=== PATIENT | male | born 1970 | race Caucasian/White ===

== ENCOUNTER 2019-04-18 12:16 | Inpatient (IN) | payer OTHER ==
[2019-04-18 13:38] VITALS: BMI 32.1
--- NOTE | 2019-04-18 16:15 | HP ---
CIWA Score Nausea/Vomitin Muscle Tremors: 4-Moderate,w/Arms Extend Anxiety: 4-Mod. Anxious/Guarded Agitation: 4-Moderately Restless Paroxysmal Sweats: No Perspiration Orientation: 0-Oriented Tacttile Disturbances: 2-Mild Itch/Numbness/Burn Auditory Disturbances: 0-None Visual Disturbances: 0-None Headache: 5-Severe CIWA-Ar Total Score: 21 - Admission Criteria OASAS Guidelines: Admission for Medically Managed Detox: Requires at least one of the followin. CIWA greater than 12 2. Seizures within the past 24 hours 3. Delirium tremens within the past 24 hours 4. Hallucinations within the past 24 hours 5. Acute intervention needed for co occurring medical disorder 6. Acute intervention needed for co occurring psychiatric disorder 7. Severe withdrawal that cannot be handled at a lower level of care (continued vomiting, continued diarrhea, abnormal vital signs) requiring intravenous medication and/or fluids 8. Admission ROS S - HPI Allergies/Adverse Reactions: Allergies Allergy/AdvReac Type Severity Reaction Status Date / Time No Known Allergies Allergy Verified 04/18/19 13:32 History of Present Illness: pt here requesting detox from etoh use , reports he went to [facility] and was directed to call for pickup to this facility , denies being seen by medical staff @ [facility] or having had meds today . latest use of etoh last night , daily use vodka 1 bottle and 1 x 6-pk beer daily x 30 days , prior to which he was not drinking alcohol per pt " for a while " . Pt declines to answer questions about triggering event " If I told you you would wind up in an asylum, I am doing it for your benefit " . reports blackouts , tremors , seizure " years ago " from etoh w/d . Pt is poor historian, irritable, hostile. 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 Exam Limitations: Clinical Condition - Ebola screening Have you traveled outside of the country in the last 21 days: No Have you had contact with anyone from an Ebola affected area: No Do you have a fever: No - Review of Systems Constitutional: No Symptoms Reported EENT: reports: See HPI Respiratory: reports: No Symptoms reported Cardiac: reports: No Symptoms Reported GI: reports: See HPI : reports: No Symptoms Reported Musculoskeletal: reports: No Symptoms Reported Integumentary: reports: No Symptoms Reported Neuro: reports: See HPI Endocrine: reports: No Symptoms Reported Psychiatric: reports: Orientated x3, Agitated, Anxious Patient History - Smoking Cessation Smoking history: Current every day smoker Have you smoked in the past 12 months: Yes Hx Chewing Tobacco Use: No Initiated information on smoking cessation: No - Substances abused Alcohol Substance route: Oral Frequency: Daily Amount used: 1 bottle, 6 pack beer Age of first use: 16 Date of last use: 04/17/19 Cocaine Substance route: Inhalation Frequency: Daily Amount used: $100 Age of first use: 18 Date of last use: 04/17/19 Family Disease History - Family Disease History Family History: Denies Admission Physical Exam [facility] - Vital Signs Vital Signs: Vital Signs - 24 hr 04/18/19 04/18/19 13:34 14:16 Temperature 96.7 F L 96.7 F L Pulse Rate 67 67 Respiratory 18 18 Rate Blood Pressure 106/76 106/76 - Physical General Appearance: Yes: Moderate Distress, Tremorous, Irritable, Anxious HEENTM: Yes: Hearing grossly Normal, Normocephalic, Normal Voice Respiratory: Yes: Lungs Clear, Normal Breath Sounds, No Respiratory Distress, No Accessory Muscle Use Neck: Yes: No masses,lesions,Nodules, Trachea in good position Cardiology: Yes: Regular Rhythm, Regular Rate, S1, S2 Abdominal: Yes: Non Tender, Soft Musculoskeletal: Yes: Gait Steady Extremities: Yes: Normal Range of Motion, Non-Tender, Tremors Neurological: Yes: Fully Oriented, Alert, Motor Strength 5/5, Other (irritable , hostile affect) Integumentary: Yes: Warm - Diagnostic (1) Alcohol abuse Current Visit: Yes Status: Acute (2) Cocaine use disorder Current Visit: Yes Status: Acute (3) Nicotine dependence Current Visit: Yes Status: Acute Qualifiers: Nicotine product type: cigarettes Breathalyzer - Breathalyzer Breathalyzer: 0 Urine Drug Screen - Test Device Lot number: [id number] Expiration date: 01/23/20 - Control Is test valid?: Yes - Results Drug screen NEGATIVE: No Urine drug screen results: THC-Marijuana, RADHA-Cocaine, BZO-Benzodiazepines Inpatient Rehab Admission - Rehab Decision to Admit Inpatient rehab admission?: No
[2019-04-18] MEDS ORDERED: MELATONIN 5 MG TABLETS PO PRN (16:19)
[2019-04-18] MEDS ORDERED: MAGNESIUM HYDROX 2400MG/30ML ORAL SUSPENSION 30 ML CUP PO PRN (16:19)
[2019-04-18] MEDS ORDERED: hydrOXYzine HCL 25 MG TABLET (FP) PO PRN (16:19)
[2019-04-18] MEDS ORDERED: NICOTINE POLACRILEX 2 MG GUM BUC PRN (16:19)
[2019-04-18] MEDS ORDERED: MAG HYDROX/AL HYDROX/SIMETH 30 ML UNIT-DOSE CUP PO PRN (16:19)
[2019-04-18] MEDS ORDERED: MENTHOL/PHENOL 1 EACH UD MM PRN (16:19)
[2019-04-18] MEDS ORDERED: ACETAMINOPHEN 325 MG TABLET (FP) PO PRN ×2 (16:19)
[2019-04-18] MEDS ORDERED: BISMUTH SUBSALICYLATE 524 MG/30 ML UD PO PRN (16:19)
[2019-04-18] MEDS ORDERED: IBUPROFEN 400 MG TABLET (FP) PO PRN (16:19)
[2019-04-18] MEDS ORDERED: MAGNESIUM CITRATE 300 ML BOTTLE PO PRN (16:19)
[2019-04-18] MEDS ORDERED: chlordiazePOXIDE HCL 25 MG CAPSULE PO PRN (16:20)
[2019-04-18] MEDS: chlordiazePOXIDE HCL 25 MG CAPSULE PO SCH ×2 (17:26→22:50)
[2019-04-18] MEDS ORDERED: THIAMINE HCL 100 MG TABLET (FP) PO SCH (22:00)
[2019-04-19] MEDS: chlordiazePOXIDE HCL 25 MG CAPSULE PO SCH ×3 (05:21→18:18)
[2019-04-19] MEDS ORDERED: PRENATAL VITAMINS W/ FOLIC ACID TABLET (FP) PO SCH (10:00)
[2019-04-19 10:42] LABS: ALBUMIN 3.5 g/dl (3.4-5.0); BILIRUBIN,TOTAL 0.3 mg/dL (0.2-1); BLOOD UREA NITROGEN 23.8 mg/dL (7-18); CALCIUM 8.4 mg/dL (8.5-10.1); CREATININE 0.8 mg/dL (0.55-1.3); POTASSIUM 4.3 mmol/L (3.5-5.1)
[2019-04-19 10:50] LABS: HEMATOCRIT 45.4 % (35.4-49); HEMOGLOBIN 15.5 GM/dL (11.7-16.9); MCH 29.9 pg (25.7-33.7); MCHC 34.1 g/dl (32.0-35.9); MEAN CELL VOLUME 87.8 fl (80-96); MEAN PLT VOLUME 7.7 fl (7.5-11.1); PLATELET COUNT 248 K/MM3 (134-434); RBC 5.17 M/mm3 (4.00-5.60); RDW 13.6 % (11.9-15.9); WHITE BLOOD COUNT 6.5 K/mm3 (4.0-10.0)
[2019-04-19] MEDS ORDERED: ONDANSETRON *ODT* 4 MG TABLET SL PRN (14:21)
--- NOTE | 2019-04-19 17:01 | PN ---
S CIWA - CIWA Score Nausea/Vomitin Muscle Tremors: None Anxiety: 5 Agitation: 1-Slight > Activity Paroxysmal Sweats: No Perspiration Orientation: 2-Disoriented Date<2 days Tacttile Disturbances: 2-Mild Itch/Numbness/Burn Auditory Disturbances: 0-None Visual Disturbances: 2-Mild Sensitivity Headache: 0-None Present CIWA-Ar Total Score: 15 [facility] Progress Note (SOAP) Subjective: Anxious (Severe), Nausea. Patient Expresses Considerable concern Over Circumstances Pertaining to His Personal Life At This Time. Patient Advised to speak with Road Consultant for Guidance on Aftercare Planning. Patient verbalized understanding of recommendation. Objective: PATIENT A & O X 3. IN NO ACUTE DISTRESS. 04/19/19 16:58 Vital Signs Temperature 97.5 F L 04/19/19 13:29 Pulse Rate 78 04/19/19 13:29 Respiratory Rate 18 04/19/19 13:29 Blood Pressure 131/87 04/19/19 13:29 O2 Sat by Pulse Oximetry (%) Laboratory Tests 04/19/19 04/19/19 04/19/19 07:30 07:30 07:30 WBC 6.5 RBC 5.17 Hgb 15.5 Hct 45.4 MCV 87.8 MCH 29.9 MCHC 34.1 RDW 13.6 Plt Count 248 MPV 7.7 Sodium 144 Potassium 4.3 Chloride 109 H Carbon Dioxide 31 Anion Gap 3 L BUN 23.8 H Creatinine 0.8 Est GFR (CKD-EPI)AfAm 121.57 Est GFR (CKD-EPI)NonAf 104.89 Random Glucose 96 Calcium 8.4 L Total Bilirubin 0.3 AST 23 ALT 50 Alkaline Phosphatase 112 Total Protein 6.0 L Albumin 3.5 RPR Titer Nonreactive LABS NOTED. RESULTS OF QFT /TB TEST PENDING. 04/19/19 17:01 Assessment: 04/19/19 17:01 WITHDRAWAL SYMPTOMS. Plan: PATIENT CONTINUE DETOX. INCREASE DAILY PO WATER INTAKE.
[2019-04-19 18:32] VITALS: BP 131/88; PULSE 80; TEMP 98.6
[2019-04-20] MEDS ORDERED: chlordiazePOXIDE HCL 25 MG CAPSULE PO SCH (05:00)
[2019-04-21] MEDS ORDERED: chlordiazePOXIDE HCL 10 MG CAPSULE PO PRN
[2019-04-21] MEDS ORDERED: chlordiazePOXIDE HCL 10 MG CAPSULE PO SCH (05:00)
[2019-04-22] MEDS ORDERED: chlordiazePOXIDE HCL 10 MG CAPSULE PO SCH (05:00)
[2019-04-23] MEDS ORDERED: chlordiazePOXIDE HCL 10 MG CAPSULE PO ONE (05:00)
== END 2019-04-19 18:40 | disposition left against medical advice (07) | DRG 770 ==
LOC: YASAS 12:16 → Y3N 16:33
PROVIDERS: ADMIT Surgery; ATTEND Surgery
PROC: HZ2ZZZZ Detoxification Services for Substance Abuse Treatment (ICD-10-PCS; principal; 2019-04-18)
DX: F11.10 Opioid abuse, uncomplicated (principal); F14.10 Cocaine abuse, uncomplicated; F17.210 Nicotine dependence, cigarettes, uncomplicated
CPT/HCPCS: 36415; 80053; 85027; 86480; 86593